=== PATIENT | female | born 1990 | race Caucasian/White ===

== ENCOUNTER 2017-03-13 14:10 | Emergency (ER) | payer OTHER ==
[~2017-03-13 14:10] MED LIST: ADULT ASPIRIN81 MG PO; CATAFLAM50 MG PO; DORYX100 MG PO; EQUETRO200 MG; FLAGYL500 MG PO; FLEXERIL10 MG PO; FOLBEE PLUS CZ1 EACH PO; LEVAQUIN500 MG; LORTAB 5/500 TA1 TAB PO; METRONIDAZOLE500 MG; MICROGESTIN PO; MOTRIN800 MG PO; NORCO 5/325 TAB1 TAB PO; PROZAC; PROZAC40 MG PO; SEROQUEL100 MG; TRAZODONE PO; TRILEPTAL300 M1 PO; TRILEPTAL300 MG PO; VICODIN 5/500 T1 TAB PO; ZITHROMAX250MG Z-PAK PO; ZOLOFT50 MG PO
[2017-03-13] MEDS ORDERED: SYNTHROID PO (14:20)
[2017-03-13] MEDS ORDERED: ATIVAN0.5 M1 PO (14:21)
[2017-03-13] MEDS ORDERED: BUSPIRONE HCL10 M2 PO (14:25)
[2017-03-13] MEDS ORDERED: EFFEXOR XR75 M1 PO (14:25)
[2017-03-13 15:13] LABS: eGFR VALUE FOR BLACK >90 mL/Min
[2017-03-13] MEDS ORDERED: CYCLOBENZAPRINE5 M1 PO (15:56)
[2017-03-13] MEDS ORDERED: NORCO 5-325 TA1 EACH PO (15:56)
[2017-07-15] MEDS ORDERED: CYCLOBENZAPRINE10 M1 PO (20:37)
== END 2017-03-13 16:35 ==
LOC: EDMED 14:10
PROVIDERS: Nurse Practitioner Family
DX: S13.9XXA Sprain of joints and ligaments of unspecified parts of neck, initial encounter (principal); R51 Headache; F32.9 Major depressive disorder, single episode, unspecified; F41.9 Anxiety disorder, unspecified; E03.9 Hypothyroidism, unspecified; Z88.5 Allergy status to narcotic agent; F17.200 Nicotine dependence, unspecified, uncomplicated; Z79.890 Hormone replacement therapy; Z79.899 Other long term (current) drug therapy; Z98.890 Other specified postprocedural states; V49.40XA Driver injured in collision with unspecified motor vehicles in traffic accident, initial encounter; Y92.410 Unspecified street and highway as the place of occurrence of the external cause
CPT/HCPCS: Q9967